=== PATIENT | female | born 1950 | race Caucasian/White ===

== ENCOUNTER → 2017-09-24 | Outpatient (CLI) | payer BC, OTHER ==
[~2017-09-24] VITALS: Ht 152.4 cm; Wt 73.9 kg
[~2017-09-24] MED LIST: ADVAIR HFA120 INHALA IH; ALBUTEROL2.5 MG/3 M IH; GEODON80 MG PO; PROAIR HFA8.5 GM IH; SIMVASTATIN20 MG PO; SPIRIVA18 MCG IH; TUMS ULTRA1000 MG PO
== END | disposition home or self-care (01) ==
LOC: AMB 11:20
PROC: 0DB58ZX Excision of Esophagus, Via Natural or Artificial Opening Endoscopic, Diagnostic (ICD-10-PCS; principal; 2017-09-24)
DX: K22.10 Ulcer of esophagus without bleeding (principal); K21.0 Gastro-esophageal reflux disease with esophagitis; Z80.0 Family history of malignant neoplasm of digestive organs
CPT/HCPCS: 88305; J2250